=== PATIENT | female | born 2000 | race Caucasian/White ===

== ENCOUNTER 2025-01-09 15:10 | Outpatient (AMB) | payer OTHER, MEDICAID, SELFPAY ==
--- NOTE | 2025-01-09 15:13 | MHC.PC.OV ---
Vital Signs 01/09/25 15:19 Height 5 ft 6 in Weight 134 lb 2 oz BMI 21.6 BP 106/64 Blood Pressure Location Lt brachial Position Sitting Pulse 83 Pulse Source Pulse Oximeter Temp 98.0 F Temp Source Temporal Artery Scan Pulse Oximetry (%) 99 Oxygen Delivery Method Room Air Intake [facility] Intake Note: Marzena presents in the office today to [facility]. Allergies No Known Allergies Allergy (Verified 01/09/25 15:15) Tobacco use date assessed: 01/09/25 Dental Screening Dental Screen Date: 01/09/25 Did you have a dental visit in the last 12 months?: Yes Did you have a dental problem in the last 6 months where you did not have access to dental care?: No Was dental information given to patient?: Patient has dentist HPI HPI Comments History of Present Illness Details This is a 24-year-old female presenting to [facility]. She transferred from [facility]. She is due for a physical exam. [facility], and she has an annual exam scheduled next month. She is on an oral contraceptive pill, and she received refills from the [facility]. We reviewed her lab results in the transfer records from 2022. She declines screening for STIs. Patient says that she is not very concerned about it, but she wants to mention that she has chronic issues with halitosis and occasional acid reflux. She also eats smaller meals throughout the day and finds that she gets full if she tries to eat large meals. This has been going on for years. No weight loss, vomiting, hematemesis, diarrhea, blood in stools or night sweats. Denies family history of gastrointestinal disorders. ROS: Constitutional: No unexplained weight loss, fever, chills, fatigue or night sweats. Eyes: No vision changes, blurry vision, double vision, eye pain, eye redness, eye discharge. ENT: No hearing loss, sneezing, congestion, runny nose or sore throat. Respiratory: No shortness of breath, cough or sputum production. Cardiovascular: No chest pain, chest pressure or chest discomfort. No palpitations or pedal edema. Gastrointestinal: No anorexia, nausea, vomiting or diarrhea. No abdominal pain or blood in stool. Genitourinary: No dysuria, hematuria, urinary frequency. Neurologic: No headache, dizziness, syncope, unilateral weakness, ataxia, numbness or tingling in the extremities. Musculoskeletal: No muscle pain, back pain, joint pain or swelling. Hematologic/Lymphatics: No bleeding or bruising. No painful lymph nodes. Skin: No rash or itching. Endocrine: No cold or heat intolerance. No polyuria or polydipsia. Psychiatric: No depression or anxiety. No SI/HI. Physical exam: Constitutional: Alert, in no distress. Head: Normocephalic. Eyes: Pupils are equal, round and reactive to light. Extraocular muscles intact. Ear, Nose and Throat: Canals clear. TMs normal. Normal nasal mucosa. No nasal discharge. No oral lesions. Neck: Supple, Full range of motion. No lymphadenopathy. No palpable thyroid masses. Respiratory: Clear to auscultation. Cardiovascular: S1 S2 regular. No murmurs. Gastrointestinal: Abdomen soft, non-tender, non-distended. Normal bowel sounds. No palpable masses. Neurologic: No focal neurological deficits. Symmetric patellar reflexes. Moves all extremities spontaneously. Sensation intact bilaterally. Skin: No rashes or lesions. Musculoskeletal: No gross deformities. Normal range of motion. Extremities: Warm and well perfused. No clubbing, cyanosis or edema. 3+ peripheral pulses bilaterally. Psychiatric: Normal mood and affect [facility] Medical History (Updated 01/10/25 @ 09:36 by CANDIE Ramirez) Routine physical examination Halitosis Acid reflux Family History (Updated 01/09/25 @ 15:18 by Pratibha Steinberg MA) Other Alcoholism Substance abuse Social History (Updated 01/09/25 @ 15:19 by Pratibha Steinberg MA) Housing: House Alcohol intake: current Patient Tobacco Use Status: Never used Tobacco e-Cigarette/Vaping Use: Former Use Second Hand Smoke Exposure: No service: No Current occupational status: employed and student Current occupation: [employer] Current occupational exposures/hazards: No Cognitive needs: No Hearing needs: No Vision needs: No Questionnaire PHQ-9 Over the last 2 weeks, how often have you been bothered by any of the following problems? 1. Little interest or pleasure in doing things: not at all 2. Feeling down, depressed, or hopeless: not at all 3. Trouble falling or staying asleep, or sleeping too much: not at all 4. Feeling tired or having little energy: not at all 5. Poor appetite or overeating: not at all 6. Feeling bad about yourself - or that you are a failure or have let yourself or your family down: not at all 7. Trouble concentrating on things, such as reading the newspaper or watching television: not at all 8. Moving or speaking so slowly that other people could have noticed. Or the opposite - being so fidgety or restless that you have been moving around a lot more than usual: not at all 9. Thoughts that you would be better off or of hurting yourself in some way: not at all Total score: 0 Depression Screening Interpretation: Negative Depression Screening Done: Yes 41742 - PHQ-9 Billing: Yes Source: Developed by Drs. Reno Lorenzo, Cuca Ramachandran, Abrahan Newell and colleagues, with an educational mignon from [employer]. Thrive Questionnaire Date Thrive assessed: 01/09/25 I am a: Patient What is your living situation today?: I have a steady place to live Within the past 12 months, did the food you bought not last and you didn't have the money to get more?: Never true Within the past 12 months, did you worry whether your food would run out before you got money to buy more?: Never true Do you have trouble paying for medicines?: No Do you have trouble getting transportation to medical appointments?: No Do you have trouble paying your heating and electricity bill?: No Do you have trouble taking care of your child, family member or friend?: No Do you have trouble with day-to-day activities such as bathing, preparing meals, shopping, managing finances, etc.?: No Are you currently unemployed and looking for a job?: No Are you interested in more education?: Yes Please select the resources that you would like help with: None Currently or been in a relationship where the following occur: No concerns reported THRIVE Score: 0 AUDIT C Alcohol Use Questionnaire (AUDIT-C) 1. How often do you have a drink containing alcohol?: Monthly or less 2. How many drinks containing alcohol do you have on a typical day when you are drinking?: 3 or 4 3. How often do you have six or more drinks on one occasion?: Never Total Score: 2 JAMEY-7 AMB Questionnaire JAMEY-7 Date JAMEY - 7 assessed: 01/09/25 Feeling nervous, anxious, or on edge: 0 = Not at all Not being able to stop or control worryin = Not at all Worrying too much about different things: 0 = Not at all Trouble relaxin = Not at all Being so restless that it is hard to sit still: 0 = Not at all Becoming easily annoyed or irritable: 0 = Not at all Feeling afraid as if something awful might happen: 0 = Not at all Total JAMEY-7 score (0-4 normal; 5-9 mild; 10-14 moderate; 15-21 severe): 0 Source: Developed by Drs. Reno Lorenzo, Cuca Ramachandran, Abrahan Newell and colleagues, with an educational mignon from [employer]. JAMEY-7 Assessment Billing JAMEY-7 Assessment Tool: JAMEY-7 Assessment 95098 Physical exam (Primary Care) Vital Signs: Last Vital Signs Temp 98.0 F 01/09/25 15:19 Pulse 83 01/09/25 15:19 BP 106/64 01/09/25 15:19 Pulse Ox 99 01/09/25 15:19 Oxygen Delivery Method Room Air 01/09/25 15:19 BMI result Body Mass Index 21.6 Tobacco/Smoking Status: Tobacco use Status Tobacco use date assessed 01/09/25 01/09/25 15:21 Patient Tobacco Use Status Never used Tobacco 01/09/25 15:21 e-Cigarette/Vaping Use Former Use 01/09/25 15:21 PHQ-9: PHQ-9 Score PHQ-9: Total score 0 01/09/25 15:34 Depression Screening Interpretation: Negative Thrive Assessment: Date of Thrive Assessment Date Thrive assessed 01/09/25 01/09/25 15:21 Currently or been in a relationship where the following occur: No concerns reported Coding Level of Care Code New Pt Prev Care 18-39yr(75917 Diagnoses Routine physical examination Z00.00 Halitosis R19.6 Acid reflux K21.9 Additional Codes JAMEY-7 Assessment Billing - JAMEY-7 Assessment Tool: JAMEY-7 Assessment 30513 ([id number]) PHQ-9 - 50683 - PHQ-9 Billing: Yes ([id number]) Assessment & Plan Assessment & Plan (1) Routine physical examination: Code(s): Z00.00 - Encounter for general adult medical examination without abnormal findings Category: Medical (2) Halitosis: Code(s): R19.6 - Halitosis Category: Medical (3) Acid reflux: Code(s): K21.9 - Gastro-esophageal reflux disease without esophagitis Category: Medical Plan Patient is seen today for a routine physical. As part of this visit we reviewed the following issues, which are considered and essential part of preventative health in this age group: - Breast Cancer screening - Annual Portuguese Tutor exam - Blood pressure screening - Cholesterol screening - Osteoporosis prevention including calcium/vitamin D intake, weight bearing exercise & smoking cessation - Nutritional and exercise counseling - Counseling of injury prevention including fire prevention, smoke alarms and seat belt usage - Screening for depression - Prevention of and/or testing for infectious diseases - Education about skin cancer - Recommendations about immunizations -no immunization record available. She has a copy of immunizations at home. She will send them to the office for review. - Recommendation of an eye exam - Screening for substance abuse Recommended avoidance of spicy and acidic foods. Limit NSAID use. She has tried to keep a symptom journal, and she has not found a pattern, and these symptoms are intermittent. No constitutional symptoms. Check labs including H pylori antigen. Consider trial of short term H2 norbert or PPI. Follow up in 1 year for annual physical exam. Orders: Orders TSH reflex Free T4 01/09/25 K21.9 - Gastro-esophageal reflux disease without esophagitis, R19.6 - Halitosis H pylori Ag Stool 01/09/25 K21.9 - Gastro-esophageal reflux disease without esophagitis, R19.6 - Halitosis Comprehensive Met. Panel 01/09/25 K21.9 - Gastro-esophageal reflux disease without esophagitis, R19.6 - Halitosis Amylase 01/09/25 K21.9 - Gastro-esophageal reflux disease without esophagitis, R19.6 - Halitosis Lipase 01/09/25 K21.9 - Gastro-esophageal reflux disease without esophagitis, R19.6 - Halitosis Complete Blood Count Auto Diff 01/09/25 K21.9 - Gastro-esophageal reflux disease without esophagitis, R19.6 - Halitosis
[2025-01-09 15:19] VITALS: BP 106/64; PULSE 83; TEMP 36.7; O2SAT 99; BMI 21.6
--- OUTSIDE RECORDS SUMMARY | 2025-01-09 15:47 | XMS_ITS ---
[facility] Unknown Encounters Encounter Type Encounter Reason Primary Diagnosis Location Date Ambulatory [facility] 01/27/2022 Care Team Organization Name Specialty Phone Email Start Date End Da te [facility] PRIMARY NO Primary Care 01/27/2022 01/27/2022
--- OUTSIDE RECORDS SUMMARY | 2025-01-09 15:47 | XMS_ITS | Encounter Summary ---
Author Organization [facility] Address [address] [place] [phone] Phone Care Team Providers Care Negotiator Sales Name Role Phone Najma Sanchez NP Primary Care Provider U marysol Encounter Details Date Type Department Care Team (Late st Contact Info) Description 11/08/2017 Conversion [facility]counter [facility] [address] [address] Rylee Leonardo MD Social History Tobacco Use Types Packs/Day Years Used Date Smoking Tobacco: Never Assessed Comments Unknown Sex and Gender Information Value Date Recorded Sex Assigned at Not on file Legal Sex Female 6:09 PM EDT Gender Identity Not on file Sexual Orientation Straight 12/19/2019 5: 51 PM EDT documented as of this encounter Plan of Treatment Not on file documented as of this encounter Visit Diagnoses Not on filedocumented in this encounter Care Teams Negotiator Sales Relationship Specialty Start Date End Date Najma Sanchez NP PCP - General Pediatrics 07/01/22 documented as of this encounter
--- OUTSIDE RECORDS SUMMARY | 2025-01-09 15:48 | XMS_ITS | Data Portability ---
Author Organization [place] - [facility] Address [address] [facility] [place] [address] Assessment No assessment recorded. Plan of Treatment Reminders Order Date Submit Date Provider Last Modified By Organization Details Last Modified Time Details Appointments None recorded. Lab urinalysis, dipstick, auto [email or web address] [place] [address] ([facility]), [address] [facility], [address], 14:02:27 Referral None recorded. Procedures None recorded. Surgeries None recorded. Imaging None recorded. Medication Orders sulfamethox azole 800 mg-trimetho prim 160 mg tablet 2021 [email or web address] [facility][id number], [address] [place] [address], [place], [address], 22:41:45 Patient TargetsNo targets recorded. Patient Instructions Encounter Date Encounter Id Patient Instructions Last Modified By Organization Details Last Modified Time 01/27/2022 [id number] Diet: Activity: __X__ Drink plenty of fluids WATER Rest for ___ days Clear liquids only for ___ hours No work for ___ days No solid food for ___ hours No School for ___ days. No P.E. for ___days. Other Treatment: _X____ Take Acetaminophen ( Tylenol) or ibuprofen every 4-6 hours as needed for pain Take Naproxen (Aleve) every 12 hours Warm soaks___times a day for ___ minutes Report to your doctor if fever greater [id number] ___ develops or pain worsens. Other: CONTINUE ALL CURRENT MEDICATIONS TAKE ANTIBIOTICS FOR FIVE DAYS URINE CULTURE SHOULD BE AVAILABLE IN 72 HR FOLLOWUP PRIMARY CARE If you have any concerns, please call [phone]. If an emergency develops and you cannot reach us, please call the [facility] Emergency Department at [phone]. [email or web address] Not available 01/27/2022 22:34:24 Reason for Referral None Reported. Results Created Date Observation Date Name Description Value Unit Range Abnormal Flag Note LastModifiedBy Organization Detail LastModifiedTime 01/28/20 22 01/27/2022 UA (URIN ALYSI S) AUTO WO SCOPE urine color YELLOW yellow Not Available [facility] (Lab) [address] [place], [address], 01/27/2022 22:28:27 01/28/20 22 01/27/2022 UA (URIN ALYSI S) AUTO WO SCOPE clarity CLOUDY clear Not Available [facility] (Lab) [address] [place], [address], 01/27/2022 22:28:27 01/28/20 22 01/27/2022 UA (URIN ALYSI S) AUTO WO SCOPE specific gravity 1.010 1.003- 1.030 Not Available [facility] (Lab) [address] [place], [address], 01/27/2022 22:28:27 01/28/20 22 01/27/2022 UA (URIN ALYSI S) AUTO WO SCOPE urine glucose NEGATI VE negati ve Not Available [facility] (Lab) [address] [place], [address], 01/27/2022 22:28:27 01/28/20 22 01/27/2022 UA (URIN ALYSI S) AUTO WO SCOPE urine ketones NEGATI VE negati ve Not Available [facility] (Lab) [address] [place], [address], 01/27/2022 22:28:27 01/28/20 22 01/27/2022 UA (URIN ALYSI S) AUTO WO SCOPE urine blood 1+ negati ve Not Available [facility] (Lab) [address] [place], [address], 01/27/2022 22:28:27 01/28/20 22 01/27/2022 UA (URIN ALYSI S) AUTO WO SCOPE urine pH 6 5.0-8. 5 Not Available [facility] (Lab) [address] [place], [address], 01/27/2022 22:28:27 01/28/20 22 01/27/2022 UA (URIN ALYSI S) AUTO WO SCOPE urine bilirubin screen NEGATI VE negati ve Not Available [facility] (Lab) [address] [place], [address], 01/27/2022 22:28:27 01/28/20 22 01/27/2022 UA (URIN ALYSI S) AUTO WO SCOPE urine protein screen NEGATI VE negati ve Not Available [facility] (Lab) [address] [place], [address], 01/27/2022 22:28:27 01/28/20 22 01/27/2022 UA (URIN ALYSI S) AUTO WO SCOPE urine urobilinogen NEGATI VE negati ve Not Available [facility] (Lab) [address] [place], [address], 01/27/2022 22:28:27 01/28/20 22 01/27/2022 UA (URIN ALYSI S) AUTO WO SCOPE urine nitrites NEGATI VE negati ve Not Available [facility] (Lab) [address] [place], [address], 01/27/2022 22:28:27 01/28/20 22 01/27/2022 UA (URIN ALYSI S) AUTO WO SCOPE urine leukocyte esterase 2+ negati ve Not Available [facility] (Lab) [address] [place], [address], 01/27/2022 22:28:27 01/28/20 22 01/27/2022 UA (URIN ALYSI S) AUTO WO SCOPE microscopic exam needed? POS LEUK EST Not Available [facility] (Lab) [address] [place], [address], 01/27/2022 22:28:27 01/28/20 22 01/27/2022 UA (URIN ALYSI S) AUTO WO SCOPE urine volume centrifuged 12 12 mL Not Available [facility] (Lab) [address] [place], [address], 01/27/2022 22:28:27 01/28/20 22 01/27/2022 UA (URIN ALYSI S) AUTO WO SCOPE WBC/hpf 25-50 none seen Not Available [facility] (Lab) [address] [place], [address], 01/27/2022 22:28:27 01/28/20 22 01/27/2022 UA (URIN ALYSI S) AUTO WO SCOPE RBC/hpf 2-5 none seen Not Available [facility] (Lab) [place], [address], 01/27/2022 22:28:27 01/28/20 22 01/27/2022 UA (URIN ALYSI S) AUTO WO SCOPE bacteria/hpf 3+ none seen Not Available [facility] (Lab) [place], [address], 01/27/2022 22:28:27 01/28/20 22 01/27/2022 UA (URIN ALYSI S) AUTO WO SCOPE squamous epithelial cells/hpf 5-10 none seen Not Available [facility] (Lab) [address] [place], [place], [address], 01/27/2022 22:28:27 01/28/20 22 01/27/2022 UA (URIN ALYSI S) AUTO WO SCOPE culture if indicated NO Not Available [facility] (Lab) [address] [place] [place], [place], [address], 01/27/2022 22:28:27 Result Notes None recorded. Medical Equipment None Reported. Allergies No known drug allergies Medications Name Sig Start Date Stop Date Status Note LastModified by Organization Details LastModified Time sulfamethoxazol e 800 mg-trimethoprim 160 mg tablet TAKE ONE TABLET BY MOUTH EVERY TWELVE HOURS active Not Available Not Available No t Available nitrofurantoin monohydrate/mac rocrystals 100 mg capsule TAKE 1 CAPSULE BY MOUTH TWICE A DAY FOR 5 DAYS active Not Available Not Available No t Available Vienva 0.1 mg-20 mcg tablet TAKE 1 TABLET BY MOUTH EVERY DAY active Not Available Not Available No t Available Vitals Date Recorded Body weight Body mass index (BMI) Body mass index (BMI) [Percentile] Per age and sex Body height Heart rate Respiratory rate Oxygen saturation Oxygen saturation in Arterial blood by Pulse oximetry Body temperature Systolic And Diastolic Provider Name and Address Organization Details Last Updated DateTime 2 71580.1 2 g 18.6 kg/m2 11 % 167.64 cm 68 /min 16 /min 99 % 99 % 97.9 [degF] 146/89 mm[Hg] Imelda Lai RN [place] - [facility] 2 22:11:30 Social History None recorded. Functional Status Question Answer Note LastModified by Organization D etails LastModified Time What is your occupation? [employer] [id number] Information n ot available 01/27/2022 Mental Status None recorded. Family History Relationship Description Onset Age of this Age Resolved Age Notes LastModified by Organization Details LastModified Time Mother No current problems or disability [email or web address] Not available 01/27 22:08:41 Medical History Condition Response HAVE YOU BEEN HOSPITALIZED OR SEEN IN [facility] ER IN THE PAST YEAR ? N Gynecological History Statement/Question Response Date of LMP 01/13/2022 Obstetrics History GPAL:G 0 P 0 0 0 0 Past Encounters Encounter ID Performer Location Encounter Start Date Encounter Closed Date Diagnosis/Indication Diagnosis SNOMED-CT Code Diagnosis ICD10 Code Diagnosis Note [id number] Renetta Sweet [facility] [address] [place] [address] 01/27/2022 21:45:22 01/27/2022 22:44:31 Dysuria 59363438 R30.0 Acute urin fuentes tract infection 726152508 N39.0 UA + leukocytes , bacteria and blood. patient stated that her E.coli is usually sensitive to Bactrim. advised to follow up with urogyno. Health Concerns Section Related Observation LastModified by Organization Detai ls LastModified Time None Recorded Concern Status LastModified by Organization Details LastModified Time None Recorded Advance Directives Directive None Recorded Payers Insurance Date Sequence Insurance Name Policy Number Policy Theodore Covered Member ID Theodore Member ID Guarantor Name 01/28/[address] [place] [address] [id number] Doug Chery [id number] Marzena Chery 01/28/2022 1 *SELF PAY* Dawson Chery Notes Date Note Type Note Provider Name and Address Organization Details Recorded Time 01/27/2022 text/html 21 yo female patient presented to the clinic with complaints dysuria that started a few days ago. she gets frequent UTIs which usually grows E. coli. She is visiting [place] and is originally from [place]. She is scheduled to see urogyno by the end of the month. Denies flank pain or fever. Renetta Sweet [facility] [address] [place], [address], [facility] 01/28/2022 13:02:59 OBGyn Episode No OBEpisode recorded.
--- OUTSIDE RECORDS SUMMARY | 2025-01-09 15:48 | XMS_ITS | Encounter Summary ---
Author Organization [employer] [facility] Address [address] [place] [address] Care Team Providers Care Call Taker Name Role Phone Unavailable Primary Care Provider Unavailabl e Encounter Details Date Type Department Care Team (Latest Contact Info) Description 11/22/2020 Abstract [facility] CONVERSIONS Dental, Provider, DDS Social History Tobacco Use Types Packs/Day Years Used Date Smoking Tobacco: Never Assessed Comments Unknown Sex and Gender Information Value Date Recorded Sex Assigned at Female 07/04/2022 12:25 PM EST Legal Sex Female 5:37 PM EDT Gender Identity Female 07/04/2022 12:25 PM EST Sexual Orientation Don't know 07/04/2022 12 :26 PM EST documented as of this encounter Plan of Treatment Upcoming Encounters Date Type Department Care Team (Late st Contact Info) Description 02/16/2025 10:10 AM EDT Office Visit [facility] [address] [place] [address] Opal Guzman documented as of this encounter Visit Diagnoses Not on filedocumented in this encounter
== END 2025-01-09 15:52 | disposition home or self-care (01) ==
PROVIDERS: PCP Physician Assistant Medical; Visit Provider Physician Assistant Medical
DX: Z00.00 Encounter for general adult medical examination without abnormal findings (principal); R19.6 Halitosis; K21.9 Gastro-esophageal reflux disease without esophagitis

== ENCOUNTER → 2025-01-09 15:10 | Outpatient (BNVA) | payer OTHER, SELFPAY | PROVIDERS: PCP Physician Assistant Medical; Visit Provider Physician Assistant Medical | DX: Z00.00 Encounter for general adult medical examination without abnormal findings (principal); R19.6 Halitosis; K21.9 Gastro-esophageal reflux disease without esophagitis; Z13.31 Encounter for screening for depression; Z13.39 Encounter for screening examination for other mental health and behavioral disorders | CPT/HCPCS: 96127 ==